=== PATIENT | female | born 1960 | race American Indian/Alaskan Native ===

== ENCOUNTER 2017-10-01 10:02 | Emergency (ER) | payer OTHER ==
--- NOTE | 2017-10-01 14:45 | Emergency Department Report ---
ED Headache HPI - General Chief Complaint: Headache Stated Complaint: MIGRAINE/DIZZINESS/NAUSEA Time Seen by Provider: 10/01/17 14:29 Source: patient - History of Present Illness Initial Comments: She is a 56-year-old female who presents to ED complaining of headache and dizziness past couple of days. Patient states about a week ago she felt that she was given a cold and since then lost her appetite. Patient states she has in the evening much since Thursday last week. Patient states she has a history of migraine but has not had a migraine in a while. She reports feeling dizzy and weak, she states she has not had an appetite for food or drinks. pt states pain is localized to her frontal head and some facial pain as well. She denies fever,cough,runny nose,chest pain, sob, abd pain. Quality: moderate, achy, constant, throbbing Head Injury Location: frontal Recent Head Trauma: frequent headaches Modifying Factors: improves with: immobilization, rest Associated Symptoms: denies: fatigue, nasal congestion, numbness in legs/feet, seizures, stiff neck, vision changes Allergies/Adverse Reactions: Allergies No Known Allergies Allergy (Unverified 10/01/17 10:59) Home Medications: Ambulatory Orders Naproxen [Naprosyn] 375 mg PO BID #30 tablet 10/01/17 Prochlorperazine [Compazine] 10 mg PO Q8HR #30 tablet 10/01/17 Pseudoephedrine ER [Sudafed 12 Hr] 120 mg PO BID #10 tablet.er 10/01/17 ED Review of Systems ROS: Stated complaint: MIGRAINE/DIZZINESS/NAUSEA Other details as noted in HPI Constitutional: denies: chills, fever Eyes: denies: eye pain, eye discharge, vision change ENT: denies: ear pain, throat pain, congestion Respiratory: denies: cough, shortness of breath, wheezing Cardiovascular: denies: chest pain, palpitations Endocrine: no symptoms reported Gastrointestinal: denies: abdominal pain, nausea, vomiting, diarrhea Genitourinary: denies: urgency, dysuria, frequency, hematuria, discharge Musculoskeletal: denies: back pain, joint swelling, arthralgia Skin: denies: rash, lesions Neurological: headache. denies: weakness, numbness, paresthesias, confusion, abnormal gait Psychiatric: denies: anxiety, depression Hematological/Lymphatic: denies: easy bleeding, easy bruising ED Past Medical Hx - Past Medical History Previous Medical History?: Yes Hx Hypertension: Yes Hx Headaches / Migraines: Yes Additional medical history: Spinal stenosis, PVD - Surgical History Past Surgical History?: Yes Additional Surgical History: arteries replaced in left leg, Hysterectomy - Social History Smoking Status: Former Smoker Substance Use Type: Alcohol, Prescribed - Medications Home Medications: Home Medications Medication Instructions Recorded Confirmed Last Taken Type Naproxen [Naprosyn] 375 mg PO BID #30 tablet 10/01/17 Unknown Rx Prochlorperazine [Compazine] 10 mg PO Q8HR #30 tablet 10/01/17 Unknown Rx Pseudoephedrine ER [Sudafed 12 Hr] 120 mg PO BID #10 tablet.er 10/01/17 Unknown Rx ED Physical Exam - General Limitations: No Limitations General appearance: alert, in no apparent distress - Head Head exam: Present: atraumatic, normocephalic - Eye Eye exam: Present: normal appearance, PERRL, EOMI - ENT ENT exam: Present: mucous membranes moist - Neck Neck exam: Present: normal inspection - Respiratory Respiratory exam: Present: normal lung sounds bilaterally. Absent: respiratory distress - Cardiovascular Cardiovascular Exam: Present: regular rate, normal rhythm. Absent: systolic murmur, diastolic murmur, rubs, gallop - GI/Abdominal GI/Abdominal exam: Present: soft, normal bowel sounds - Extremities Exam Extremities exam: Present: normal inspection, full ROM - Back Exam Back exam: Present: normal inspection, full ROM - Neurological Exam Neurological exam: Present: alert, oriented X3, CN II-XII intact, normal gait, reflexes normal - Expanded Neurological Exam Expanded Patient oriented to: Present: person, place, time Speech: Present: fluid speech Cranial nerves: EOM's Intact: Normal Cerebellar function: Finger to Nose: Normal Sensory exam: Upper Extremity Light Touch: Normal, Lower Extremity Light Touch: Normal Motor strength exam: RUE: 5, LUE: 5, RLE: 5, LLE: 5 DTR: knee (R): 2+, knee (L): 2+ Best Eye Response (Myrtle): (4) open spontaneously Best Motor Response (Myrtle): (6) obeys commands Best Verbal Response (Myrtle): (5) oriented Myrtle Total: 15 - Psychiatric Psychiatric exam: Present: normal affect, normal mood - Skin Skin exam: Present: warm, dry, intact, normal color. Absent: rash ED Course Vital Signs 10/01/17 10/01/17 10/01/17 10:59 15:24 17:16 Temperature 98.1 F Pulse Rate 78 73 Respiratory 18 20 20 Rate Blood Pressure 111/74 Blood Pressure 133/78 [Right] O2 Sat by Pulse 98 100 Oximetry ED Medical Decision Making - Lab Data Result diagrams: 10/01/17 15:45 10/01/17 15:45 - Radiology Data Radiology results: report reviewed, image reviewed FINAL REPORT EXAM: CT HEAD/BRAIN WO CON HISTORY: ca/dizziness TECHNIQUE: CT examination of the head without IV contrast PRIORS: None. FINDINGS: No acute air-fluid level visualized in the included air-filled sinuses. Bone windows demonstrate no acute fracture. There is ventricular and sulcal prominence compatible with global cerebrocortical atrophy. Slight senescent calcification in the basal ganglia bilaterally, more on the right. Low attenuation regions in the cerebral white matter, while nonspecific, are present and usually attributed to chronic ischemic gliosis. It is slight in the left parietal subcortical white matter posteriorly. It can occur secondary to the normal aging process, hypertension, or arterial sclerotic vascular disease. The differential includes demyelination in the appropriate clinical setting. The brain contains no mass, mass effect, hemorrhage, or acute infarct. There is no extra-axial intracranial bleed or brain bleed. There is no midline shift. IMPRESSION: No CT evidence of definite acute CVA, intracranial bleed, or brain mass Transcribed By: HARRIS Dictated By: CLAIRE ADAMS MD Electronically Authenticated By: CLAIRE ADAMS MD Signed Date/Time: 10/01/17 1221 - Medical Decision Making 56-year-old female presents with migraine headache ED course: CBC, BMP, obtained. CT of the head ordered. 1L of NS fliuds, toradol 15mg, Reglan 10mg administered. I discussed with Pt to eat and drink fluids daily, dehydration and hunger are causes of headaches and feeling weak. Pt denied any changes in the home. discussed to follow up with pt to f/u with PCP. Discussed if symptoms worsen to return to ED Patient states she is feeling a bit much better. Discussed the patient and make sure she is eating and drinking enough fluids daily. She is neurologically intact with no neuro deficits. Critical care attestation.: If time is entered above; I have spent that time in minutes in the direct care of this critically ill patient, excluding procedure time. ED Disposition Clinical Impression: Migraine headache with aura Qualifiers: Status migrainosus presence: without status migrainosus Disposition: TO HOME OR SELFCARE Is pt being admited?: No Does the pt Need Aspirin: No Condition: Stable Instructions: Migraine Headache (ED), Acute Bacterial Rhinosinusitis (ED), Acute Headache (ED) Additional Instructions: Make sure to follow up with the primary care physician as discussed. Take all your medications as you've been prescribed. If you have any worsening symptoms or develop new symptoms please return to ED immediately. Prescriptions: Naproxen [Naprosyn] 375 mg PO BID #30 tablet Prochlorperazine [Compazine] 10 mg PO Q8HR #30 tablet Pseudoephedrine ER [Sudafed 12 Hr] 120 mg PO BID #10 tablet.er Referrals: PRIMARY CARE, [Primary Care Provider] - 3-5 Days HUGO PALACIOS MD [Staff Physician] - 3-5 Days [facility] [Outside] - 3-5 Days [facility] [Outside] - 3-5 Days MATEO WADE MD [Referring] - 3-5 Days REBECCA DOOLEY MD [Staff Physician] - 3-5 Days GIANFRANCO SANTO MD [Referring] - 3-5 Days Forms: Accompanied Note, Work/School Release Form(ED)
[2017-10-01] MEDS ORDERED: NACL 0.9% 1000 ML 1,000 ML IV ONE (15:04)
[2017-10-01] MEDS ORDERED: TORADOL IV ONE (15:07)
[2017-10-01 16:03] LABS: Basophils # (Auto) 0.1 K/mm3 (0.0-0.1); Basophils % (Auto) 1.9 % (0.0-1.8); Eosinophils # (Auto) 0.2 K/mm3 (0.0-0.4); Eosinophils % (Auto) 2.2 % (0.0-4.3); Hematocrit 40.8 % (30.3-42.9); Hemoglobin 13.3 gm/dl (10.1-14.3); Lymphocytes # (Auto) 3.6 K/mm3 (1.2-5.4); Lymphocytes % (Auto) 48.1 % (13.4-35.0); Mean Corpuscular HGB Conc 33 % (30-34); Mean Corpuscular Hemoglobin 29 pg (28-32); Mean Corpuscular Volume 88 fl (79-97); Monocytes # (Auto) 0.7 K/mm3 (0.0-0.8); Monocytes % (Auto) 9.4 % (0.0-7.3); Platelet Count 249 K/mm3 (140-440); Red Blood Count 4.62 M/mm3 (3.65-5.03); Red Cell Distribution Width 13.3 % (13.2-15.2)
[2017-10-01 16:22] LABS: BUN/Creatinine Ratio 28; Blood Urea Nitrogen 22 mg/dL (7-17); Calcium 9.1 mg/dL (8.4-10.2); Hemolysis Index 3
--- NOTE | 2017-10-01 16:23 | Cat Scan Report ---
FINAL REPORT EXAM: CT HEAD/BRAIN WO CON HISTORY: ca/dizziness TECHNIQUE: CT examination of the head without IV contrast PRIORS: None. FINDINGS: No acute air-fluid level visualized in the included air-filled sinuses. Bone windows demonstrate no acute fracture. There is ventricular and sulcal prominence compatible with global cerebrocortical atrophy. Slight senescent calcification in the basal ganglia bilaterally, more on the right. Low attenuation regions in the cerebral white matter, while nonspecific, are present and usually attributed to chronic ischemic gliosis. It is slight in the left parietal subcortical white matter posteriorly. It can occur secondary to the normal aging process, hypertension, or arterial sclerotic vascular disease. The differential includes demyelination in the appropriate clinical setting. The brain contains no mass, mass effect, hemorrhage, or acute infarct. There is no extra-axial intracranial bleed or brain bleed. There is no midline shift. IMPRESSION: No CT evidence of definite acute CVA, intracranial bleed, or brain mass
[2017-10-01 17:18] VITALS: BP 133/78
== END 2017-10-01 17:16 | disposition home or self-care (01) ==
LOC: ED 10:02
DX: G43.109 Migraine with aura, not intractable, without status migrainosus (principal); I10 Essential (primary) hypertension
CPT/HCPCS: 36415; 70450; 80048; 85025; 96361; 96374; 99284; J1885; J7030